=== PATIENT | female | born 1990 | race Caucasian/White ===

== ENCOUNTER → 2017-02-13 | Day surgery (SDC) | payer BC ==
[~2017-02-13] MED LIST: LORTAB 7.5-3251 EACH PO; PAXIL20 MG PO
== END | disposition home or self-care (01) ==
LOC: OR 06:59
PROVIDERS: Surgery
PROC: 06LY4CC Occlusion of Hemorrhoidal Plexus with Extraluminal Device, Percutaneous Endoscopic Approach (ICD-10-PCS; principal; 2017-02-13 09:45)
DX: K64.1 Second degree hemorrhoids (principal); K21.9 Gastro-esophageal reflux disease without esophagitis; M32.9 Systemic lupus erythematosus, unspecified; E66.01 Morbid (severe) obesity due to excess calories; E55.9 Vitamin D deficiency, unspecified; Z88.1 Allergy status to other antibiotic agents; Z90.89 Acquired absence of other organs; Z98.51 Tubal ligation status; Z79.899 Other long term (current) drug therapy
CPT/HCPCS: 36415; 84703; J7120

== ENCOUNTER 2017-05-05 01:36 | Observation (INO) | payer BC ==
[~2017-05-05] VITALS: Ht 175.3 cm; Wt 133.6 kg
[~2017-05-05 01:36] MED LIST changes: -LORTAB 7.5-3251 EACH PO
[2017-05-05 03:24] LABS: HEMOGLOBIN 13.2 gm/dl (12.3-15.3); RED BLOOD COUNT 5.17 M/UL (4.00-5.10)
[2017-05-05 03:46] LABS: BUN/CREATININE RATIO 19 (0-10)
[2017-05-06 06:26] LABS: HEMOGLOBIN 12.5 gm/dl (12.3-15.3); RED BLOOD COUNT 4.95 M/UL (4.00-5.10)
[2017-05-06 06:49] LABS: WHITE BLOOD COUNT 9.1 K/UL (4.5-11.0)
[2017-05-06 06:59] LABS: BUN/CREATININE RATIO 13 (0-10)
[2017-05-06] MEDS ORDERED: LORTAB 7.5-3251 EACH PO (15:54)
== END 2017-05-06 18:25 | disposition home or self-care (01) ==
LOC: ER1 01:36 → ZEROF 09:15 → MED SURG 4 15:02 → ZEROF 15:02 → MED SURG 4 15:09
PROVIDERS: Emergency Medicine; Family Medicine; ADMIT Surgery
PROC: 0FT44ZZ Resection of Gallbladder, Percutaneous Endoscopic Approach (ICD-10-PCS; principal; 2017-05-05 18:00)
DX: K80.10 Calculus of gallbladder with chronic cholecystitis without obstruction (principal); E66.01 Morbid (severe) obesity due to excess calories; Z68.41 Body mass index [BMI] 40.0-44.9, adult
CPT/HCPCS: 36415; 71010; 80053; 82150; 82550; 82553; 83690; 83874; 84484; 84703; 85025; 85379; 93005; 96374; 96375; 96376; 99285; C9113; G0378; J1100; J1335; J1650; J1885; J2250; J2270; J2405; J2710; J3010; J7050; J7120; Q9962

== ENCOUNTER → 2020-11-17 | Outpatient (CLI) | payer BC ==
[~2020-11-17] MED LIST changes: +LORTAB 7.5-3251 EACH PO
== END ==
LOC: RT 13:19
DX: Z13.9 Encounter for screening, unspecified (principal); I45.10 Unspecified right bundle-branch block
CPT/HCPCS: 93005